=== PATIENT | male | born 1955 | race Asian ===

== ENCOUNTER 2017-01-27 07:53 | Day surgery (SDC) | payer OTHER ==
[2017-01-18 10:44] VITALS: BMI 24.3
[2017-01-27] MEDS ORDERED: PROPOFOL 20 ML ONE ×2 (07:57)
[2017-01-27 09:46] VITALS: TEMP 97.6
[2017-01-27 10:45] VITALS: BP 122/71; PULSE 58
--- NOTE | 2017-01-28 11:58 | PATH ---
Surgical Pathology Report Patient Name: THEODORE ROBERTSON [facility]. Rec. #: [id number] /Age/Gender: 1955 (Age: 61) / M Account: [id number] Location: [facility]-ENDOSCOPY Taken: 01/26/2017 Received: 01/27/2017 Reported: 01/28/2017 Physicians: Uri Krause M.D. Specimen(s) Received A: DUODENUM B: ANTRUM C: RIGHT COLON Clinical History Anemia Gastritis, duodenitis, rule out celiac, polyp right colon Final Diagnosis A. DUODENUM, BIOPSY: DUODENAL MUCOSA WITH NO PATHOLOGIC CHANGES. NO HISTOLOGIC EVIDENCE OF GLUTEN SENSITIVE ENTEROPATHY (CELIAC SPRUE) IDENTIFIED. B. STOMACH, ANTRUM, BIOPSY: MODERATE TO SEVERE CHRONIC ACTIVE GASTRITIS. IMMUNOSTAIN FOR H. PYLORI IS POSITIVE (MODERATE TO MANY NUMBERS OF ORGANISMS). C. COLON, RIGHT, BIOPSY: TUBULAR ADENOMA. Electronically Signed Karson Frazier M.D. Gross Description A. Received in formalin, labeled "duodenum" are 3 acuña, irregular portions of soft tissue averaging 0.3 cm. in greatest dimension. The specimens are submitted in toto in one cassette. B. Received in formalin, labeled "antrum" are 2 acuña, irregular portions of soft tissue averaging 0.6 cm. in greatest dimension. The specimens are submitted in toto in one cassette. C. Received in formalin, labeled "right colon" is a acuña, polypoid portion of soft tissue measuring 0.5 cm. in greatest dimension. The specimen is submitted in toto in one cassette. 01/27/201701/27/2017
== END 2017-01-27 10:15 | disposition home or self-care (01) ==
LOC: FASU-ENDO 07:53
PROVIDERS: ATTEND Internal Medicine Gastroenterology
PROC: 0DBK8ZX Excision of Ascending Colon, Via Natural or Artificial Opening Endoscopic, Diagnostic (ICD-10-PCS; principal; 2017-01-27 08:59)
PROC: 0DB98ZX Excision of Duodenum, Via Natural or Artificial Opening Endoscopic, Diagnostic (ICD-10-PCS; 2017-01-27 08:59)
PROC: 0DB68ZX Excision of Stomach, Via Natural or Artificial Opening Endoscopic, Diagnostic (ICD-10-PCS; 2017-01-27 08:59)
DX: Z12.11 Encounter for screening for malignant neoplasm of colon (principal); D64.9 Anemia, unspecified; K29.50 Unspecified chronic gastritis without bleeding; K29.80 Duodenitis without bleeding
CPT/HCPCS: 88305-TC; 88342-TC

== ENCOUNTER 2023-12-23 20:40 | Emergency (ER) | payer OTHER, MEDICARE ==
[2023-12-23] MEDS ORDERED: CIPROFLOXACIN 250 MG TABLET (RESTRICTED TO ID) PO ONE (21:29)
[2023-12-23] MEDS: CIPROFLOXACIN 500 MG TABLET (RESTRICTED TO ID) PO ONE (21:29)
[2023-12-23 21:30] VITALS: BP 123/60; PULSE 58; RESP 15; TEMP 97.9; BMI 24.7
== END 2023-12-23 21:35 | disposition home or self-care (01) ==
LOC: FER 20:40
DX: R33.8 Other retention of urine (principal)
CPT/HCPCS: 81003; 81015; 87086; 99283-25